=== PATIENT | female | born 1960 | race Caucasian/White ===

== ENCOUNTER → 2018-06-16 12:36 | Outpatient (CLI) | payer OTHER, SELFPAY ==
[2018-06-16 13:27] LABS: Add Manual Diff / Slide Review NO; Basophils Percent Auto 0.8 % (0-2); Hematocrit 45.1 % (36-46); Hemoglobin 15.2 g/dL (12.0-16.0); Mean Corpuscular HGB Conc 33.7 % (30-36); Mean Corpuscular Hemoglobin 31.3 PG (26-34); Mean Corpuscular Volume 92.8 fL (80-100); Monocytes Percent Auto 4.5 % (3-14); Neutrophils Absolute Auto 4200 /uL (3000-5900); Neutrophils Percent Auto 46.7 % (50-75); Platelet Count 320 X10^3/uL (150-400); Red Blood Cell Count 4.86 X10^6/uL (4.0-5.2); Red Cell Distribution Width 14.1 % (11.6-14.8)
[2018-06-16 13:51] LABS: Alanine Aminotransferase 36 IU/L (9-52); Albumin 4.8 g/dL (3.5-5.0); Albumin Globulin Ratio 1.4 (1.0-2.8); Alkaline Phosphatase 70 U/L (38-126); Aspartate Aminotransferase 34 IU/L (14-36); BUN Creatinine Ratio 21.4 (6-22); Blood Urea Nitrogen 15 mg/dL (7-17); Calcium 9.9 mg/dL (8.4-10.2); Carbon Dioxide 30 mmol/L (22-32); Chloride 102 mmol/L (98-107); Cholesterol 211 mg/dL (140-199); Estimated Glomerular Filt Rate > 60.0 mL/min (>60); Globulin 3.5 g/dL (1.7-4.1); Glucose 114 mg/dL (70-100); HDL Cholesterol 55 mg/dL (40-60); HEMOLYSIS < 15 (0-50); LDL Cholesterol Calculated 121 mg/dL (<100); Potassium 4.7 mmol/L (3.4-5.1); Sodium 144 mmol/L (137-145); Total Protein 8.3 g/dL (6.3-8.2); Triglycerides 175 mg/dL (35-150)
[2018-06-16 14:12] LABS: Hemoglobin A1C% w Est Avg Glu 6.6 % (4.0-6.0)
[2018-06-16 15:07] LABS: Thyroid Stimulating Hormone 2.26 uIU/mL (0.47-4.68)
== END ==
PROVIDERS: PCP Family Medicine; Visit Provider Family Medicine
DX: E03.9 Hypothyroidism, unspecified (principal); E11.9 Type 2 diabetes mellitus without complications; E66.9 Obesity, unspecified; E88.81 Metabolic syndrome and other insulin resistance
CPT/HCPCS: 36415; 80053; 80061; 83036; 84443; 85025

== ENCOUNTER → 2019-07-11 09:21 | Outpatient (CLI) | payer OTHER, SELFPAY ==
[2019-07-11 10:10] LABS: Add Manual Diff / Slide Review NO; Basophils Absolute Auto 0 /uL (0-100); Basophils Percent Auto 0.5 % (0-2); Eosinophils Absolute Auto 300 /uL (0-450); Eosinophils Percent Auto 3.7 % (2-4); Hematocrit 43.8 % (36-46); Hemoglobin 14.7 g/dL (12.0-16.0); Lymphocytes Absolute Auto 2600 /uL (1100-4500); Lymphocytes Percent Auto 37.2 % (25-40); Mean Corpuscular HGB Conc 33.5 % (30-36); Mean Corpuscular Hemoglobin 31.5 PG (26-34); Mean Corpuscular Volume 93.8 fL (80-100); Monocytes Absolute Auto 400 /uL (0-900); Monocytes Percent Auto 5.8 % (3-14); Neutrophils Absolute Auto 3600 /uL (1500-7000); Neutrophils Percent Auto 52.8 % (50-75); Platelet Count 310 X10^3/uL (150-400); Red Blood Cell Count 4.67 X10^6/uL (4.0-5.2); Red Cell Distribution Width 13.6 % (11.6-14.8); White Blood Cell Count 6.9 X10^3/uL (4.5-11.0)
[2019-07-11 10:16] LABS: Hemoglobin A1C% w Est Avg Glu 6.9 % (4.0-6.0)
[2019-07-11 10:36] LABS: Alanine Aminotransferase 24 IU/L (<35); Albumin 4.4 g/dL (3.5-5.0); Albumin Globulin Ratio 1.3 (1.0-2.8); Alkaline Phosphatase 76 U/L (38-126); Aspartate Aminotransferase 31 IU/L (14-36); Bilirubin Total 1.4 mg/dL (0.2-1.3); Blood Urea Nitrogen 14 mg/dL (7-17); Calcium 9.6 mg/dL (8.4-10.2); Carbon Dioxide 25 mmol/L (22-32); Chloride 102 mmol/L (98-107); Cholesterol 240 mg/dL (140-199); Estimated Glomerular Filt Rate > 60.0 mL/min (>60); Globulin 3.3 g/dL (1.7-4.1); Glucose 172 mg/dL (70-100); HDL Cholesterol 49 mg/dL (40-60); HEMOLYSIS < 15 (0-50); LDL Cholesterol Calculated 158 mg/dL (<100); Potassium 3.9 mmol/L (3.4-5.1); Sodium 139 mmol/L (137-145); Total Protein 7.7 g/dL (6.3-8.2); Triglycerides 165 mg/dL (35-150)
[2019-07-11 11:06] LABS: Thyroid Stimulating Hormone 2.58 uIU/mL (0.47-4.68)
== END ==
PROVIDERS: PCP Family Medicine; Visit Provider Family Medicine
DX: E03.9 Hypothyroidism, unspecified (principal); E11.9 Type 2 diabetes mellitus without complications; E88.81 Metabolic syndrome and other insulin resistance
CPT/HCPCS: 36415; 80053; 80061; 83036; 84443; 85025

== ENCOUNTER → 2020-07-11 12:22 | Outpatient (CLI) | payer OTHER, SELFPAY ==
[2020-07-11 12:49] LABS: Add Manual Diff / Slide Review NO; Basophils Absolute Auto 100 /uL (0-100); Basophils Percent Auto 0.8 % (0-2); Eosinophils Absolute Auto 300 /uL (0-450); Eosinophils Percent Auto 3.8 % (2-4); Hematocrit 43.7 % (36-46); Hemoglobin 14.2 g/dL (12.0-16.0); Lymphocytes Absolute Auto 3100 /uL (1100-4500); Lymphocytes Percent Auto 36.4 % (25-40); Mean Corpuscular HGB Conc 32.4 % (30-36); Mean Corpuscular Hemoglobin 30.5 PG (26-34); Mean Corpuscular Volume 94.1 fL (80-100); Monocytes Absolute Auto 400 /uL (0-900); Monocytes Percent Auto 4.2 % (3-14); Neutrophils Absolute Auto 4600 /uL (1500-7000); Neutrophils Percent Auto 54.8 % (50-75); Platelet Count 323 X10^3/uL (150-400); Red Blood Cell Count 4.64 X10^6/uL (4.0-5.2); Red Cell Distribution Width 14.2 % (11.6-14.8); White Blood Cell Count 8.4 X10^3/uL (4.5-11.0)
[2020-07-11 12:56] LABS: Hemoglobin A1C% w Est Avg Glu 6.9 % (4.0-6.0)
[2020-07-11 13:19] LABS: BUN Creatinine Ratio 17.6 (6-22); Blood Urea Nitrogen 12 mg/dL (7-17); Calcium 9.6 mg/dL (8.4-10.2); Carbon Dioxide 28 mmol/L (22-32); Chloride 103 mmol/L (98-107); Cholesterol 208 mg/dL (140-199); Estimated Glomerular Filt Rate > 60.0 mL/min (>60); Glucose 124 mg/dL (70-100); HDL Cholesterol 60 mg/dL (40-60); HEMOLYSIS < 15 (0-50); LDL Cholesterol Calculated 109 mg/dL (<100); Potassium 4.2 mmol/L (3.4-5.1); Sodium 138 mmol/L (137-145); Triglycerides 197 mg/dL (35-150)
[2020-07-11 13:45] LABS: Thyroid Stimulating Hormone 2.94 uIU/mL (0.47-4.68)
[2020-07-11 15:09] LABS: Creatinine Urine Random 61.3 mg/dL
[2020-07-11 15:18] LABS: Microalbumin Urine Random < 0.6 mg/dL (0-1.6)
== END ==
PROVIDERS: PCP Family Medicine; Referring Provider Family Medicine; Visit Provider Family Medicine
DX: E11.9 Type 2 diabetes mellitus without complications (principal); E66.9 Obesity, unspecified; E78.5 Hyperlipidemia, unspecified; E88.81 Metabolic syndrome and other insulin resistance; E03.9 Hypothyroidism, unspecified
CPT/HCPCS: 36415; 80048; 80061; 82043; 82570; 83036; 84443; 85025

== ENCOUNTER → 2020-11-28 09:28 | Outpatient (CLI) | payer OTHER, SELFPAY ==
[2020-11-28] MEDS: COVID-19 VACC, Ad26(JANSSEN)/PF 0.5 ML IM (09:32)
== END ==
PROVIDERS: PCP Family Medicine; Visit Provider Internal Medicine
DX: Z23 Encounter for immunization (principal)
CPT/HCPCS: 0031A; 91303

== ENCOUNTER → 2021-07-15 14:52 | Outpatient (CLI) | payer OTHER, SELFPAY ==
[2021-07-15 15:57] LABS: Add Manual Diff / Slide Review NO; Basophils Absolute Auto 0 /uL (0-100); Basophils Percent Auto 0.6 % (0-2); Eosinophils Absolute Auto 300 /uL (0-450); Hemoglobin 13.5 g/dL (12.0-16.0); Lymphocytes Absolute Auto 3400 /uL (1100-4500); Mean Corpuscular HGB Conc 33.8 % (30-36); Mean Corpuscular Hemoglobin 31.3 PG (26-34); Mean Corpuscular Volume 92.5 fL (80-100); Monocytes Absolute Auto 400 /uL (0-900); Monocytes Percent Auto 5.2 % (3-14); Neutrophils Absolute Auto 3500 /uL (1500-7000); Neutrophils Percent Auto 45.2 % (50-75); Platelet Count 278 X10^3/uL (150-400); Red Blood Cell Count 4.33 X10^6/uL (4.0-5.2); White Blood Cell Count 7.7 X10^3/uL (4.5-11.0)
[2021-07-15 16:28] LABS: Creatinine Urine Random 22.1 mg/dL
[2021-07-15 16:31] LABS: Microalbumin Urine Random < 0.6 mg/dL (0-1.6)
[2021-07-15 16:37] LABS: Alanine Aminotransferase 31 IU/L (<35); Albumin 4.4 g/dL (3.5-5.0); Albumin Globulin Ratio 1.3 (1.0-2.8); Alkaline Phosphatase 62 U/L (38-126); Aspartate Aminotransferase 35 IU/L (14-36); BUN Creatinine Ratio 17.4 (6-22); Blood Urea Nitrogen 12 mg/dL (7-17); Calcium 9.3 mg/dL (8.4-10.2); Carbon Dioxide 26 mmol/L (22-32); Chloride 104 mmol/L (98-107); Cholesterol 176 mg/dL (140-199); Estimated Glomerular Filt Rate > 60.0 mL/min (>60); Globulin 3.3 g/dL (1.7-4.1); Glucose 108 mg/dL (70-100); HDL Cholesterol 48 mg/dL (40-60); HEMOLYSIS < 15 (0-50); LDL Cholesterol Calculated 98 mg/dL (<100); Potassium 3.8 mmol/L (3.4-5.1); Sodium 138 mmol/L (137-145); Total Protein 7.7 g/dL (6.3-8.2); Triglycerides 152 mg/dL (35-150)
[2021-07-15 17:09] LABS: Thyroid Stimulating Hormone 2.47 uIU/mL (0.47-4.68)
== END ==
PROVIDERS: PCP Family Medicine; Referring Provider Family Medicine; Visit Provider Family Medicine
DX: E03.9 Hypothyroidism, unspecified (principal); I10 Essential (primary) hypertension
CPT/HCPCS: 36415; 80053; 80061; 82043; 82570; 84443; 85025

== ENCOUNTER → 2021-07-21 15:17 | Outpatient (CLI) | payer OTHER, SELFPAY ==
[2021-07-21 15:59] LABS: Hemoglobin A1C% w Est Avg Glu 6.4 % (4.0-6.0)
[2021-07-21 16:45] LABS: Creatinine Urine Random 48.2 mg/dL
[2021-07-21 16:57] LABS: Microalbumin Urine Random < 0.6 mg/dL (0-1.6)
== END ==
PROVIDERS: PCP Family Medicine; Referring Provider Family Medicine; Visit Provider Family Medicine
DX: E11.9 Type 2 diabetes mellitus without complications (principal)
CPT/HCPCS: 36415; 82043; 82570; 83036

== ENCOUNTER → 2022-06-15 14:02 | Outpatient (CLI) | payer OTHER, SELFPAY ==
[2022-06-15 15:33] LABS: Hemoglobin A1C% w Est Avg Glu 6.3 % (4.0-6.0)
[2022-06-15 15:34] LABS: Add Manual Diff / Slide Review NO; Alanine Aminotransferase 25 IU/L (<35); Albumin 4.1 g/dL (3.5-5.0); Albumin Globulin Ratio 1.1 (1.0-2.8); Alkaline Phosphatase 66 U/L (38-126); Aspartate Aminotransferase 26 IU/L (14-36); BUN Creatinine Ratio 19.1 (6-22); Basophils Absolute Auto 0 /uL (0-100); Basophils Percent Auto 0.5 % (0-2); Blood Urea Nitrogen 13 mg/dL (7-17); Calcium 8.9 mg/dL (8.4-10.2); Carbon Dioxide 27 mmol/L (22-32); Chloride 103 mmol/L (98-107); Cholesterol 173 mg/dL (140-199); Eosinophils Absolute Auto 300 /uL (0-450); Eosinophils Percent Auto 3.4 % (2-4); Estimated Glomerular Filt Rate > 60 mL/min (>60); Globulin 3.6 g/dL (1.7-4.1); Glucose 102 mg/dL (70-100); HDL Cholesterol 49 mg/dL (40-60); HEMOLYSIS < 15 (0-50); Hemoglobin 13.8 g/dL (12.0-16.0); LDL Cholesterol Calculated 98 mg/dL (<100); Lymphocytes Absolute Auto 3100 /uL (1100-4500); Lymphocytes Percent Auto 39.7 % (25-40); Mean Corpuscular HGB Conc 34.5 % (30-36); Mean Corpuscular Hemoglobin 31.8 PG (26-34); Mean Corpuscular Volume 92.2 fL (80-100); Monocytes Absolute Auto 400 /uL (0-900); Monocytes Percent Auto 4.9 % (3-14); Neutrophils Absolute Auto 4000 /uL (1500-7000); Neutrophils Percent Auto 51.5 % (50-75); Platelet Count 284 X10^3/uL (150-400); Potassium 3.7 mmol/L (3.4-5.1); Red Blood Cell Count 4.34 X10^6/uL (4.0-5.2); Red Cell Distribution Width 13.8 % (11.6-14.8); Sodium 139 mmol/L (137-145); Total Protein 7.7 g/dL (6.3-8.2); Triglycerides 130 mg/dL (35-150); White Blood Cell Count 7.8 X10^3/uL (4.5-11.0)
[2022-06-15 16:58] LABS: Creatinine Urine Random 23.6 mg/dL
[2022-06-15 17:06] LABS: Microalbumin Urine Random < 0.6 mg/dL (0-1.6)
== END ==
PROVIDERS: PCP Family Medicine; Referring Provider Family Medicine; Visit Provider Family Medicine
DX: E03.9 Hypothyroidism, unspecified (principal); E11.9 Type 2 diabetes mellitus without complications; E78.2 Mixed hyperlipidemia; I10 Essential (primary) hypertension
CPT/HCPCS: 36415; 80053; 80061; 82043; 82570; 83036; 84443; 85025

== ENCOUNTER 2022-11-12 09:01 | Day surgery (SDC) | payer OTHER, SELFPAY ==
--- NOTE | 2022-11-12 | PATH_ITS ---
[facility] Accession Number: [id number] No. of containers..01 Tissue . 01 Material submitted: . colon - CECAL POLYP . 01 Diagnosis: Cecal Polyp, Biopsy: Colonic mucosa with benign lymphoid aggregate. [facility] 11/16/2022 1042 Local . 01 Electronically signed: . Katiuska Lam MD, Pathologist NPI- [id number] . 01 Gross description: . CECAL POLYP: Received in formalin are 3 fragment(s) of jones, soft tissue measuring 0.1 x 0.1 x 0.1 cm to 0.3 x 0.2 x 0.1 cm submitted entirely in 1 cassette(s) /TAMMY 11/15/20222023 Local . 01 Pathologist provided ICD-10: K63.89, Z12.11 . 01 CPT . 813329 Specimen Comment: A courtesy copy of this report has been sent to [facility] Pathology Performed at: [address] [facility] Cytology [address] [place] [address] [address] [facility], [place], [place] [id number] MD Nikhil Miller MD Phone: [phone]
[2022-11-12] MEDS: LACTATED RINGERS 1,000 ML 120 ML IV (09:33)
[2022-11-12 09:37] VITALS: BP 137/99; PULSE 96; RESP 16; TEMP 36.6; O2SAT 99
--- NOTE | 2022-11-12 10:43 | PM.HP.1 ---
History of Present Illness History of Present Illness Date Patient Seen: 11/12/22 Time Patient Seen: 10:44 Chief complaint: Screening Colonoscopy Narrative: Ms. Luke presents today for screening colonoscopy. It has been 7 years since her last colonoscopy and she believes she had 2 polyps and was given a 5 year recommended follow-up. He is a couple of years late for that but has not had any symptoms of bleeding or changes in bowel habits. She has no family history of colon cancer. She does report occasional constipation when eating a lot of cheese for example and some certain foods trigger diarrhea for her for example processed foods or when she goes out to eat. Patient History Medical History (Updated 11/12/22 @ 10:46 by Yudy Hodgson MD) Disorder associated with well-controlled type 2 diabetes mellitus (06/20/17) Hypothyroidism Surgical History (Updated 06/21/18 @ 21:24 by Valencia Paz) Status post delivery (~1995) Status post delivery (~2000) Family & Social History Family History (Updated 06/16/16 @ 00:00 by Issa Cohen MD) Brother Age: 71 Diabetes mellitus Brother High cholesterol Father Hypertension High cholesterol Alcoholic Mother Age: 94 Diabetes mellitus Heart disease Sister Age: 73 High cholesterol Social History: household members spouse Tobacco & Substance use: Smoking Status Former smoker alcohol intake current alcohol intake frequency holiday/special occasion Substance Use Type does not use Meds Home Medications and Allergies Home Medications Medication Instructions Recorded Confirmed Type CA PANTOTHENATE/FOLIC ACID/VIT 1 tab PO Q DAY ##0 05/19/11 06/17/22 History (MULTIVITAMIN) FOCUS FACTOR 1 tab PO DAILY 07/20/21 06/17/22 History metformin 500 mg tablet See Rx Instructions .Route 06/07/22 11/12/22 Rx .COMPLEX #180 tabs Individual DigitalTouch Ultra Test strips #300 ea 08/18/22 Rx levothyroxine 75 mcg tablet 75 mcg PO QAM #90 tabs 08/18/22 11/12/22 Rx (Synthroid) Allergies Allergy/AdvReac Type Severity Reaction Status Date / Time No Known Drug Allergies Allergy Verified 11/12/22 09:35 Exam Vital Signs (past 8 hours): - 11/12/22 09:37 Temperature 97.8 F Pulse Rate 96 H Respiratory Rate 16 Blood Pressure 137/99 H Pulse Oximetry 99 Oxygen Delivery Method Room Air Oxygen Delivery Method Room Air Const General: cooperative, healthy appearing and comfortable Nutritional Appearance: overweight HENMT Head: normal to inspection Eyes General: appearance normal, both eyes and all related structures Resp Effort & Inspection: normal respiratory effort and able to speak in complete sentences GI Palpation: soft and No tender Assessment & Plan Assessment and plan (1) History of colon polyps: Status: Acute (2) Encounter for screening colonoscopy: Status: Acute Plan I discussed the risks benefits and alternatives of a screening colonoscopy and possible biopsy with Mrs. Luke, she understands these risks including but not limited to perforation of the colon and an incomplete exam. She would like to proceed.
[2022-11-12 11:37] VITALS: BP 125/72; PULSE 91; RESP 16; TEMP 35.8; O2SAT 97
--- NOTE | 2022-11-12 11:41 | PM.OP.COLON ---
Operative Date/Time/Diagnoses Date of procedure: 11/12/22 Pre-op diagnosis: Cancer screening, history of polyps. Post-op diagnosis: same Procedure & Clinicians Study performed: Colonoscopy and biopsy Same procedure as scheduled: Yes Indications: History of colon polyps Surgeon: Yudy Hodgson Procedure Notes Procedure in detail: Patient was taken to the endoscopy suite and placed in left lateral decubitus position. A time-out was performed. With the help of Anesthesiology a conscious sedation was induced and the patient was monitored throughout the procedure. A digital rectal exam was performed there were no masses or strictures. Anoscope was introduced into the anal canal and advanced through to the cecum. Photograph was taken of the appendiceal orifice. Abdominal pressure was required to reach the cecum. In addition there was a little bit unique looking lesion in the cecum which was about 1-1.5 cm in size, it was flat not pedunculated. It may have been scope trauma or a scar from a previous biopsy but in the event that it could be sessile adenoma I biopsied it and did my best to remove it in total. I used the biopsy forceps and this required several sweeps of the biopsy device. The bowel prep was excellent [place] bowel prep score of 3. In addition there were scattered diverticula throughout the sigmoid colon and some photographs were obtained of these. Diverticula were within normal limits for age, and no specific therapy required other than fiber supplementation which is recommended. Findings: divertiulosis and polyp(s) Specimen(s): other (Cecal polyp) Impression: Depending on the pathology of the polyps the follow-up macro recommendation maybe 3-5 years. With history of colon polyps 5 year follow-up is reasonable. Post-procedure Plan for aftercare: Final recommendation will be made based on pathology results. If the cecal biopsy shows sessile or serrated adenoma, I would favor a 3 year follow-up because of the size and the method of removal in a piecemeal fashion with forceps.
[2022-11-12 11:43] VITALS: BP 106/71; PULSE 88; RESP 16; O2SAT 97
[2022-11-12 11:49] VITALS: BP 119/79; PULSE 79; RESP 18; O2SAT 96
== END 2022-11-12 12:10 | disposition home or self-care (01) ==
PROVIDERS: PCP Family Medicine; Referring Provider Surgery; Visit Provider Surgery
PROC: 0DJD8ZZ Inspection of Lower Intestinal Tract, Via Natural or Artificial Opening Endoscopic (ICD-10-PCS; CPT 45378; principal; 2022-11-12 10:00)
DX: Z12.11 Encounter for screening for malignant neoplasm of colon (principal); Z86.010 Personal history of colon polyps; K57.30 Diverticulosis of large intestine without perforation or abscess without bleeding
CPT/HCPCS: 45380; 82962; J2704

== ENCOUNTER → 2022-12-14 13:07 | Outpatient (CLI) | payer OTHER, SELFPAY ==
[2022-12-15 07:36] LABS: x Labcorp Estim. Avg Glu (eAG) 146 mg/dL (.); x Labcorp Hemoglobin A1c 6.7 % (4.8-5.6)
== END ==
PROVIDERS: PCP Family Medicine; Referring Provider Family Medicine; Visit Provider Family Medicine
DX: E11.9 Type 2 diabetes mellitus without complications (principal)
CPT/HCPCS: 36415; 83036

== ENCOUNTER → 2023-06-15 11:26 | Outpatient (CLI) | payer OTHER, SELFPAY ==
[2023-06-15 13:03] LABS: Add Manual Diff / Slide Review NO; Basophils Absolute Auto 100 /uL (0-100); Basophils Percent Auto 0.9 % (0-2); Eosinophils Absolute Auto 200 /uL (0-450); Eosinophils Percent Auto 2.8 % (2-4); Hemoglobin 14.2 g/dL (12.0-16.0); Lymphocytes Absolute Auto 2600 /uL (1100-4500); Lymphocytes Percent Auto 34.8 % (25-40); Mean Corpuscular HGB Conc 33.8 % (30-36); Mean Corpuscular Hemoglobin 31.3 PG (26-34); Mean Corpuscular Volume 92.6 fL (80-100); Monocytes Absolute Auto 500 /uL (0-900); Neutrophils Absolute Auto 4200 /uL (1500-7000); Neutrophils Percent Auto 55.5 % (50-75); Platelet Count 285 X10^3/uL (150-400); Red Blood Cell Count 4.53 X10^6/uL (4.0-5.2); Red Cell Distribution Width 14.4 % (11.6-14.8); White Blood Cell Count 7.6 X10^3/uL (4.5-11.0)
[2023-06-15 13:05] LABS: Hemoglobin A1C% w Est Avg Glu 6.7 % (4.0-6.0)
[2023-06-15 13:43] LABS: Alanine Aminotransferase 22 IU/L (<35); Albumin 4.2 g/dL (3.5-5.0); Albumin Globulin Ratio 1.2 (1.0-2.8); Alkaline Phosphatase 63 U/L (38-126); Aspartate Aminotransferase 29 IU/L (14-36); BUN Creatinine Ratio 20.9 (6-22); Bilirubin Total 1.1 mg/dL (0.2-1.3); Blood Urea Nitrogen 14 mg/dL (7-17); Calcium 9.5 mg/dL (8.4-10.2); Carbon Dioxide 27 mmol/L (22-32); Chloride 101 mmol/L (98-107); Cholesterol 212 mg/dL (140-199); Estimated Glomerular Filt Rate > 60 mL/min (>60); Globulin 3.6 g/dL (1.7-4.1); Glucose 114 mg/dL (80-110); HDL Cholesterol 52 mg/dL (40-60); HEMOLYSIS < 15 (0-50); LDL Cholesterol Calculated 125 mg/dL (<100); Potassium 4.1 mmol/L (3.4-5.1); Sodium 137 mmol/L (137-145); Total Protein 7.8 g/dL (6.3-8.2); Triglycerides 174 mg/dL (35-150)
[2023-06-15 14:11] LABS: TSH w/ Reflex to FT4 2.25 uIU/mL (0.47-4.68)
== END ==
PROVIDERS: PCP Family Medicine; Referring Provider Family Medicine; Visit Provider Family Medicine
DX: E78.2 Mixed hyperlipidemia (principal); I10 Essential (primary) hypertension; E03.9 Hypothyroidism, unspecified; E11.9 Type 2 diabetes mellitus without complications; E66.9 Obesity, unspecified
CPT/HCPCS: 36415; 80053; 80061; 83036; 84443; 85025

== ENCOUNTER 2023-06-24 19:58 | Emergency (ER) | payer OTHER, SELFPAY ==
[2023-06-24] VITALS (11 sets, daily range): BP systolic 135–204; BP diastolic 62–94; PULSE 78–96; RESP 10–24; TEMP 36.9; O2SAT 91–98; BMI 38.6
--- NOTE | 2023-06-24 20:17 | DI.RAD.S_ITS ---
PROCEDURE: XR CHEST 1V INDICATIONS: chest pain TECHNIQUE: One view of the chest was acquired. COMPARISON: None. FINDINGS: Surgical changes and devices: None. Lungs and pleura: Lungs are clear. No pleural effusions or pneumothorax. Mediastinum: Mediastinal contours appear normal. Heart size is normal. Bones and chest wall: No suspicious bony lesions. Overlying soft tissues appear unremarkable. IMPRESSION: Portable chest within normal limits for age. Dictated by: Peyton Arias M.D. on 06/24/2023 at 20:51 Approved by: Peyton Arias M.D. on 06/24/2023 at 20:52
[2023-06-24] MEDS: ASPIRIN 81 MG CHEW TAB 324 MG PO (20:27)
[2023-06-24 20:52] LABS: Add Manual Diff / Slide Review NO; Basophils Absolute Auto 100 /uL (0-100); Basophils Percent Auto 0.7 % (0-2); Eosinophils Absolute Auto 200 /uL (0-450); Eosinophils Percent Auto 1.8 % (2-4); Hematocrit 43.8 % (36-46); Hemoglobin 14.7 g/dL (12.0-16.0); Lymphocytes Absolute Auto 2800 /uL (1100-4500); Lymphocytes Percent Auto 32.3 % (25-40); Mean Corpuscular HGB Conc 33.5 % (30-36); Mean Corpuscular Hemoglobin 31.3 PG (26-34); Mean Corpuscular Volume 93.5 fL (80-100); Monocytes Absolute Auto 300 /uL (0-900); Monocytes Percent Auto 3.8 % (3-14); Neutrophils Absolute Auto 5300 /uL (1500-7000); Neutrophils Percent Auto 61.4 % (50-75); Platelet Count 304 X10^3/uL (150-400); Red Blood Cell Count 4.68 X10^6/uL (4.0-5.2); Red Cell Distribution Width 14.6 % (11.6-14.8); White Blood Cell Count 8.7 X10^3/uL (4.5-11.0)
[2023-06-24 20:57] LABS: Prothrombin Time 11.2 SECONDS (10.1-12.7)
[2023-06-24 20:59] LABS: PTT Partial Thromboplastin Tim 40 SECONDS (26-36)
[2023-06-24 21:00] LABS: Alanine Aminotransferase 24 IU/L (<35); Albumin 4.5 g/dL (3.5-5.0); Alkaline Phosphatase 66 U/L (38-126); Aspartate Aminotransferase 24 IU/L (14-36); BUN Creatinine Ratio 26.2 (6-22); Bilirubin Total 0.7 mg/dL (0.2-1.3); Blood Urea Nitrogen 17 mg/dL (7-17); Carbon Dioxide 25 mmol/L (22-32); Chloride 102 mmol/L (98-107); Creatine Kinase 54 U/L (30-135); Estimated Glomerular Filt Rate > 60 mL/min (>60); Globulin 4.3 g/dL (1.7-4.1); Glucose 141 mg/dL (80-110); HEMOLYSIS < 15 (0-50); Lipase 136 U/L (23-300); Potassium 4.1 mmol/L (3.4-5.1); Sodium 141 mmol/L (137-145); Total Protein 8.8 g/dL (6.3-8.2)
[2023-06-24 21:10] LABS: Troponin I < 0.012 ng/mL (0.01-0.034)
--- NOTE | 2023-06-24 21:55 | ED.CHESTPAIN ---
HPI - Chest Pain General Chief Complaint: Chest Pain Stated Complaint: chest tightness, high BP Time Seen by Provider: 06/24/23 21:05 Source: patient Mode of arrival: Ambulatory Limitations: no limitations History of Present Illness HPI narrative: Patient is a 62-year-old female who is here for evaluation of chest tightness. She describes it in the center of her chest. Not worse with palpation or movement or deep breathing. The symptoms started yesterday afternoon. They continued all yesterday afternoon. Went to bed last night with the symptoms but when she woke up this morning felt well. Symptoms started again earlier this afternoon. There are periods of time when it was worse than others but has been fairly consistent. No shortness of breath. No nausea or vomiting. She does not have a history of hypertension that she took her blood pressure at home and it was elevated. She was recently started on the statin. She has a history of hypothyroid and [id number] diabetes. Related Data Home Medications Medication Instructions Recorded Confirmed FOCUS FACTOR 2 tab PO DAILY 06/20/23 06/20/23 apple cider vinegar 2 cap PO BID 06/20/23 06/20/23 cholecalciferol (vitamin D3) 50 50 mcg PO DAILY 06/20/23 06/20/23 mcg (2,000 unit) capsule collagen miscellaneous 06/20/23 06/20/23 turmeric 200 mg-green tea 200 1 cap PO DAILY 06/20/23 06/20/23 mg-pterostil 50 mg-broccol 30 mg capsule (Nrf2 Activator) vitamin E (dl, acetate) 180 mg 180 mg PO BID 06/20/23 06/20/23 (400 unit) capsule Previous Rx's Medication Instructions Recorded OneTouch Ultra Test strips #300 ea 08/18/22 atorvastatin 20 mg tablet 20 mg PO DAILY #90 tabs 06/20/23 levothyroxine 75 mcg tablet 75 mcg PO QAM #90 tabs 06/20/23 (Synthroid) metformin 500 mg tablet 500 mg PO BID #180 tabs 06/20/23 Allergies Allergy/AdvReac Type Severity Reaction Status Date / Time No Known Drug Allergies Allergy Verified 06/24/23 20:11 Review of Systems Constitutional Constitutional: Reports system reviewed and no additional complaints, except as documented Cardiovascular Cardiovascular: Reports system reviewed and no additional complaints, except as documented Respiratory Respiratory: Reports system reviewed and no additional complaints, except as documented Gastrointestinal Gastrointestinal: Reports system reviewed and no additional complaints, except as documented Integumentary/Breasts Skin/Breast: Reports system reviewed and no additional complaints, except as documented Neurologic Neurologic: Reports system reviewed and no additional complaints, except as documented Hematologic/Lymphatic On Anticoagulants: No Patient History Medical History Hypothyroidism Disorder associated with well-controlled type 2 diabetes mellitus (06/20/17) Surgical History (Updated 06/21/18 @ 21:24 by Valencia Paz) Status post delivery (~2000) Status post delivery (~1995) Family History (Updated 06/16/16 @ 00:00 by Issa Cohen MD) Brother Age: 71 Diabetes mellitus Brother High cholesterol Father Hypertension High cholesterol Alcoholic Mother Age: 94 Diabetes mellitus Heart disease Sister Age: 73 High cholesterol Social History marital status: household members: spouse Smoking Status: Former smoker alcohol intake: current substance use type: does not use Smoking Status: Former smoker alcohol intake frequency: holidays/special occasions only Substance Use Type: does not use Exam Initial Vital Signs Initial Vital Signs: Vital Signs Temperature 98.4 F 06/24/23 20:11 Pulse Rate 96 H 06/24/23 20:11 Respiratory Rate 18 06/24/23 20:11 Blood Pressure 204/94 H 06/24/23 20:11 Pulse Oximetry 98 06/24/23 20:11 Oxygen Delivery Method Room Air 06/24/23 20:11 Const General: cooperative and No ill appearing HENMT Head: normal to inspection Resp Effort & Inspection: normal respiratory effort Auscultation: clear to auscultation bilaterally Cardio Rate: regular rate Rhythm: regular rhythm GI Inspection: normal to inspection Skin General: no rashes or lesions noted Neuro General: patient alert, patient awake, patient oriented x3 and moves all extremities Extrem General: No edema Scores HEART Score Heart Score history: Slightly Suspicious Heart Score EKG: Non-Specific repolarization disturbance Heart Score Age: 45-64 years old Heart Score risk factors: 1-2 risk factors Heart Score troponin: < or = to normal limit Heart Score Total: 3 Course Orders Ordered: ED Orders 06/24/23 20:17 XR chest 1V Stat EKG-12 Lead Stat 06/24/23 20:36 Complete Blood Count AUTO DIFF Stat Comprehensive Metabolic Panel Stat Lipase Stat Magnesium Stat PTT Partial Thromboplastin Jose Eduardo Stat Prothrombin Time INR Stat Troponin & CK Cardiac Panel Stat 06/24/23 22:35 Troponin & CK Cardiac Panel Stat Discontinued Medications Aspirin (Aspirin 81 Mg Chew Tab) 324 mg PO NOW ONE Stop: 06/24/23 20:18 Last Admin: 06/24/23 20:27 Dose: 324 mg Documented By: LEI Vital Signs Vital signs: Vital Signs - 8 hr 06/24/23 21:04 06/24/23 21:05 06/24/23 21:05 Pulse Rate 96 H 96 H Respiratory Rate 22 11 L Blood Pressure 167/78 H Pulse Oximetry 91 98 Oxygen Delivery Method 06/24/23 21:30 06/24/23 22:00 06/24/23 22:30 Pulse Rate 87 91 H 83 Respiratory Rate 13 22 24 Blood Pressure Pulse Oximetry 96 94 94 Oxygen Delivery Method 06/24/23 22:34 06/24/23 22:35 06/24/23 22:35 Pulse Rate 82 82 Respiratory Rate 18 16 Blood Pressure 170/75 H Pulse Oximetry 94 96 Oxygen Delivery Method Room Air 06/24/23 23:00 06/24/23 23:01 06/24/23 23:01 Pulse Rate 81 83 Respiratory Rate 14 21 Blood Pressure 135/62 Pulse Oximetry 96 96 Oxygen Delivery Method Room Air 06/24/23 23:30 06/24/23 23:30 Pulse Rate 78 Respiratory Rate 10 L Blood Pressure 141/67 H Pulse Oximetry 96 Oxygen Delivery Method MDM - Chest Pain Lab Data Attestation: I reviewed the patient's lab results. 06/24/23 20:36 06/24/23 20:36 Labs: Lab Results 06/24/23 06/24/23 Range/Units 20:36 22:35 WBC 8.7 (4.5-11.0) X10^3/uL RBC 4.68 (4.0-5.2) X10^6/uL Hgb 14.7 (12.0-16.0) g/dL Hct 43.8 (36-46) % MCV 93.5 (80-100) fL MCH 31.3 (26-34) PG MCHC 33.5 (30-36) % RDW 14.6 (11.6-14.8) % Plt Count 304 (150-400) X10^3/uL Neut % (Auto) 61.4 (50-75) % Lymph % (Auto) 32.3 (25-40) % [place] % (Auto) 3.8 (3-14) % Eos % (Auto) 1.8 L (2-4) % Baso % (Auto) 0.7 (0-2) % Neut # (Auto) 5300 (4468-7537) /uL Lymph # (Auto) 2800 (3115-1575) /uL [place] # (Auto) 300 (0-900) /uL Eos # (Auto) 200 (0-450) /uL Baso # (Auto) 100 (0-100) /uL PT 11.2 (10.1-12.7) SECONDS INR 1.0 (0.9-1.3) APTT 40 H (26-36) SECONDS Sodium 141 (137-145) mmol/L Potassium 4.1 (3.4-5.1) mmol/L Chloride 102 (98-107) mmol/L Carbon Dioxide 25 (22-32) mmol/L BUN 17 (7-17) mg/dL Creatinine 0.65 (0.52-1.04) mg/dL Estimated GFR > 60 (>60) mL/min BUN/Creatinine Ratio 26.2 H (6-22) Glucose 141 H (80-110) mg/dL Calcium 10.0 (8.4-10.2) mg/dL Magnesium 2.0 (1.6-2.3) mg/dL Total Bilirubin 0.7 (0.2-1.3) mg/dL AST 24 (14-36) IU/L ALT 24 (<35) IU/L Alkaline Phosphatase 66 (38-126) U/L Total Creatine Kinase 54 50 (30-135) U/L Troponin I < 0.012 < 0.012 (0.01-0.034) ng/mL Total Protein 8.8 H (6.3-8.2) g/dL Albumin 4.5 (3.5-5.0) g/dL Globulin 4.3 H (1.7-4.1) g/dL Albumin/Globulin Ratio 1.0 (1.0-2.8) Lipase 136 (23-300) U/L Urine Dip Bedside Urine Glucose Negative Bedside Urine Bilirubin - Negative Bedside Urine Ketone - Negative Urine Specific [place] 1.005 Bedside Urine Occult Blood - Negative Bedside Urine pH 6.0 Bedside Urine Protein - Negative Bedside Urine Urobilinogen - Negative Bedside Urine Nitrite - Negative Bedside Urine Leukocytes - Negative Esterase Imaging Data Chest x-ray: Radiologist's Impression: PROCEDURE: XR CHEST 1V INDICATIONS: chest pain TECHNIQUE: One view of the chest was acquired. COMPARISON: None. FINDINGS: Surgical changes and devices: None. Lungs and pleura: Lungs are clear. No pleural effusions or pneumothorax. Mediastinum: Mediastinal contours appear normal. Heart size is normal. Bones and chest wall: No suspicious bony lesions. Overlying soft tissues appear unremarkable. IMPRESSION: Portable chest within normal limits for age. ECG Data Attestation: I personally reviewed and interpreted this ECG as follows: Interpretation: Sinus rhythm Ventricular rate 93 Normal axis Normal QRS Nonspecific ST T wave changes MDM Narrative Medical decision making narrative: Low risk heart score. Troponins negative x2. Nonspecific changes on EKG. Chest x-ray is unremarkable. Patient was hypertensive upon arrival but this improved without specific intervention here in the ER. I had a discussion with the patient and her at bedside regarding her symptoms. Recommended that the patient contact your primary doctor for follow-up to discuss the indications for stress testing. Will have her continue to take all of her medications as directed. She was given return precautions. She expressed understanding and agreement. Discharge Plan Departure Patient Disposition: Home Clinical Impression: Atypical chest pain Instructions: DI for Atypical Chest Pain Activity Restrictions/Additional Instructions: Recommend that you continue to take all of your medications as directed. Continue to take your blood pressure at home. On Tuesday contact your primary doctor's office for follow-up to discuss the indications for a stress test. Return to the emergency department for new symptoms. Prescriptions: No Action FOCUS FACTOR 2 tab PO DAILY apple cider vinegar 2 cap PO BID vitamin E (dl, acetate) 180 mg (400 unit) capsule 180 mg PO BID cholecalciferol (vitamin D3) 50 mcg (2,000 unit) capsule 50 mcg PO DAILY collagen miscellaneous Nrf2 Activator [id number] mg capsule 1 cap PO DAILY atorvastatin 20 mg tablet 20 mg PO DAILY Qty: 90 3RF levothyroxine [Synthroid] 75 mcg tablet 75 mcg PO QAM Qty: 90 3RF Rx Instructions: Take 1 tab every morning 30 mins before food. metformin 500 mg tablet 500 mg PO BID Qty: 180 3RF (DME) OneTouch Ultra Test strips See Rx Instructions .Route .MEDSUPPLY Qty: 300 3RF Dose Instruction: Use to test blood sugar three times daily Rx Instructions: Use to test blood sugar three times daily Referrals: Issa Cohen MD [Primary Care Provider] - Stand Alone Forms: Patient Portal/API
[2023-06-24 22:57] LABS: Creatine Kinase 50 U/L (30-135)
[2023-06-24 23:10] LABS: Troponin I < 0.012 ng/mL (0.01-0.034)
== END 2023-06-24 23:44 | disposition home or self-care (01) ==
PROVIDERS: Emergency Provider Emergency Medicine; PCP Family Medicine
DX: R07.89 Other chest pain (principal)
CPT/HCPCS: 36415; 71045; 80053; 81003; 82550; 83690; 83735; 84484; 85025; 85610; 85730; 93005; 99284

== ENCOUNTER → 2023-12-15 11:27 | Outpatient (CLI) | payer OTHER, SELFPAY ==
[2023-12-15 12:16] LABS: Hemoglobin A1C% w Est Avg Glu 7.4 % (4.0-6.0)
[2023-12-15 12:17] LABS: Cholesterol 147 mg/dL (140-199); HDL Cholesterol 63 mg/dL (40-60); LDL Cholesterol Calculated 58 mg/dL (<100); Triglycerides 128 mg/dL (35-150)
[2023-12-15 16:39] LABS: Creatinine Urine Random 22.9 mg/dL
[2023-12-15 16:43] LABS: Microalbumin Urine Random < 0.6 mg/dL (0-1.6)
== END ==
LOC: LAB 11:28
PROVIDERS: PCP Family Medicine; Referring Provider Family Medicine; Visit Provider Family Medicine
DX: E78.2 Mixed hyperlipidemia (principal); E03.9 Hypothyroidism, unspecified; E11.9 Type 2 diabetes mellitus without complications
CPT/HCPCS: 36415; 80061; 82043; 82570; 83036

== ENCOUNTER → 2024-06-07 11:35 | Outpatient (CLI) | payer OTHER, SELFPAY ==
[2024-06-07 12:07] LABS: Add Manual Diff / Slide Review NO; Basophils Absolute Auto 100 /uL (0-100); Basophils Percent Auto 0.8 % (0-2); Eosinophils Absolute Auto 300 /uL (0-450); Eosinophils Percent Auto 3.4 % (2-4); Hematocrit 42.1 % (36-46); Lymphocytes Absolute Auto 3000 /uL (1100-4500); Lymphocytes Percent Auto 38.7 % (25-40); Mean Corpuscular HGB Conc 33.3 % (30-36); Mean Corpuscular Hemoglobin 31.5 PG (26-34); Mean Corpuscular Volume 94.6 fL (80-100); Monocytes Absolute Auto 400 /uL (0-900); Monocytes Percent Auto 5.7 % (3-14); Neutrophils Absolute Auto 3900 /uL (1500-7000); Neutrophils Percent Auto 51.4 % (50-75); Platelet Count 303 X10^3/uL (150-400); Red Blood Cell Count 4.45 X10^6/uL (4.0-5.2); White Blood Cell Count 7.6 X10^3/uL (4.5-11.0)
[2024-06-07 12:21] LABS: Alanine Aminotransferase 21 IU/L (<35); Albumin 4.2 g/dL (3.5-5.0); Albumin Globulin Ratio 1.2 (1.0-2.8); Alkaline Phosphatase 67 U/L (38-126); Aspartate Aminotransferase 24 IU/L (14-36); BUN Creatinine Ratio 24.6 (6-22); Bilirubin Total 0.9 mg/dL (0.2-1.3); Blood Urea Nitrogen 16 mg/dL (7-17); Calcium 9.5 mg/dL (8.4-10.2); Carbon Dioxide 26 mmol/L (22-32); Chloride 103 mmol/L (98-107); Cholesterol 125 mg/dL (140-199); Estimated Glomerular Filt Rate > 60 mL/min (>60); Globulin 3.5 g/dL (1.7-4.1); Glucose 116 mg/dL (80-110); HDL Cholesterol 51 mg/dL (40-60); HEMOLYSIS < 15 (0-50); LDL Cholesterol Calculated 52 mg/dL (<100); Potassium 4.4 mmol/L (3.4-5.1); Sodium 137 mmol/L (137-145); Total Protein 7.7 g/dL (6.3-8.2); Triglycerides 111 mg/dL (35-150)
[2024-06-07 12:22] LABS: Hemoglobin A1C% w Est Avg Glu 6.6 % (4.0-6.0)
[2024-06-07 12:51] LABS: TSH w/ Reflex to FT4 2.43 uIU/mL (0.47-4.68)
[2024-06-07 16:47] LABS: Creatinine Urine Random 42.65 mg/dL
[2024-06-07 16:54] LABS: Microalbumin Urine Random < 0.6 mg/dL (0-1.6)
== END ==
PROVIDERS: PCP Family Medicine; Referring Provider Family Medicine; Visit Provider Family Medicine
DX: E11.9 Type 2 diabetes mellitus without complications (principal); E03.9 Hypothyroidism, unspecified; E78.2 Mixed hyperlipidemia; I10 Essential (primary) hypertension
CPT/HCPCS: 36415; 80053; 80061; 82043; 82570; 83036; 84443; 85025

== ENCOUNTER → 2025-06-18 10:42 | Outpatient (CLI) | payer OTHER, SELFPAY ==
[2025-06-18 11:47] LABS: Add Manual Diff / Slide Review NO; Hematocrit 43.0 % (36-46); Hemoglobin 14.3 g/dL (12.0-16.0); Lymphocytes Absolute Auto 2700 /uL (1100-4500); Mean Corpuscular HGB Conc 33.2 % (30-36); Mean Corpuscular Hemoglobin 31.4 PG (26-34); Mean Corpuscular Volume 94.7 fL (80-100); Platelet Count 289 X10^3/uL (150-400)
[2025-06-18 11:59] LABS: Alanine Aminotransferase 22 IU/L (<35); Albumin 4.4 g/dL (3.5-5.0); Albumin Globulin Ratio 1.3 (1.0-2.8); Alkaline Phosphatase 69 U/L (38-126); Blood Urea Nitrogen 16 mg/dL (7-17); Calcium 9.5 mg/dL (8.4-10.2); Carbon Dioxide 25 mmol/L (22-32); Chloride 102 mmol/L (98-107); Cholesterol 145 mg/dL (140-199); Estimated Glomerular Filt Rate > 60 mL/min (>60); Globulin 3.3 g/dL (1.7-4.1); Glucose 146 mg/dL (70-99); HDL Cholesterol 67 mg/dL (40-60); HEMOLYSIS < 15 (0-50); Potassium 4.5 mmol/L (3.4-5.1); Sodium 136 mmol/L (137-145); Total Protein 7.7 g/dL (6.3-8.2); Triglycerides 148 mg/dL (35-150)
[2025-06-18 12:02] LABS: Hemoglobin A1C% w Est Avg Glu 6.7 % (4.0-6.0)
[2025-06-18 12:29] LABS: TSH w/ Reflex to FT4 2.72 uIU/mL (0.47-4.68)
== END ==
PROVIDERS: PCP Family Medicine; Referring Provider Family Medicine; Visit Provider Family Medicine
DX: E78.2 Mixed hyperlipidemia (principal); I10 Essential (primary) hypertension; E03.9 Hypothyroidism, unspecified; E11.9 Type 2 diabetes mellitus without complications
CPT/HCPCS: 36415; 80053; 80061; 83036; 84443; 85025